=== PATIENT | male | born 1980 | race Caucasian/White ===

== ENCOUNTER 2016-07-01 17:10 | Emergency (ER) | payer BC | END 2016-07-01 18:18 | disposition home or self-care (01) | LOC: ER 17:10 | DX: S51.812A Laceration without foreign body of left forearm, initial encounter (principal); W45.8XXA Other foreign body or object entering through skin, initial encounter; Y92.019 Unspecified place in single-family (private) house as the place of occurrence of the external cause; F17.210 Nicotine dependence, cigarettes, uncomplicated; Z79.899 Other long term (current) drug therapy | CPT/HCPCS: 12002; 90471; 90715; 96372; 99070; 99282-25 ==